=== PATIENT | female | born 1975 | race American Indian/Alaskan Native ===

== ENCOUNTER 2018-12-20 19:34 | Emergency (ER) | payer MEDICARE ==
--- NOTE | 2018-12-20 20:33 | Emergency Department Report ---
Blank Doc - Documentation Documentation: This is a 43-year-old female that presents with vaginal bleeding x2 months. D enies any follow-up with PCP/OBGYN. This initial assessment/diagnostic orders/clinical plan/treatment(s) is/are subject to change based on patient's health status, clinical progression and re-assessment by fellow clinical providers in the ED. Further treatment and workup at subsequent clinical providers discretion. Patient/guardians urged not to elope from the ED as their condition may be serious if not clinically assessed and managed. Initial orders include: 1- Patient sent to [facility] for further evaluation and treatment 2- labs 3- UA
[2018-12-20 20:57] LABS: Basophils % (Auto) 0.6 % (0.0-1.8); Eosinophils # (Auto) 0.1 K/mm3 (0.0-0.4); Eosinophils % (Auto) 1.3 % (0.0-4.3); Hematocrit 33.6 % (30.3-42.9); Hemoglobin 11.3 gm/dl (10.1-14.3); Mean Corpuscular HGB Conc 34 % (30-34); Mean Corpuscular Volume 89 fl (79-97); Monocytes # (Auto) 0.4 K/mm3 (0.0-0.8); Monocytes % (Auto) 9.4 % (0.0-7.3); Platelet Count 327 K/mm3 (140-440); Red Blood Count 3.78 M/mm3 (3.65-5.03); Red Cell Distribution Width 14.1 % (13.2-15.2)
[2018-12-20 21:02] LABS: BUN/Creatinine Ratio 7; Blood Urea Nitrogen 8 mg/dL (7-17); Calcium 9.2 mg/dL (8.4-10.2); Hemolysis Index 5
[2018-12-20 21:14] LABS: HCG Qualitative,Urine Negative (Negative)
[2018-12-20 21:20] LABS: Bacteria,Urine 1+ /HPF (Negative); Bilirubin,Urine NEG (Negative); Blood,Urine LG (Negative); Color,Urine Red (Yellow); Urobilinogen,Urine < 2.0 mg/dL (<2.0)
[2018-12-20 21:21] LABS: RBC,Urine > 182.0 /HPF (0.0-6.0)
--- NOTE | 2018-12-20 23:51 | Ultrasound Report ---
PROCEDURE: US PELVIC COMPLETE TECHNIQUE: Real-time transabdominal sonography in multiple planes of the pelvis was performed. The p elvic structures, especially the ovaries, were not optimally visualized. Transvaginal sonography was then performed to better evaluate the structures and/or abnormalities described below with image docu mentation. HISTORY: vaginal bleed COMPARISONS: None . FINDINGS: UTERUS Size: 9.2 x 5.1 x 5 point cm. Endometrial thickness: 8 mm. Orientation: anteverted. Cervix: Multiple small subcentimeter nabothian cysts. Fibroids/masses: There are 2 small fibroid tumors identified in the posterior uterine myometrium. The largest measures 28 mm.. RIGHT Ovary: 4.4 x 3 x 4.2 cm. Appearance: There is a 3.7 cm dominant simple cyst on the right ovary. LEFT Ovary: Not visualized Pelvic fluid: None. Other: None. IMPRESSION: There are a few fibroids identified in the posterior uterine myometrium, the largest afshin sures 28 mm. There are numerous subcentimeter nabothian cysts is noted at the cervix. There is a 3.7 cm dominant simple cyst on the right ovary. The left ovary is not visualized on this s tudy.. This document is electronically signed by Evelyn Herrera DO., December 20 2018 11:48:57 PM ET
[2018-12-21] MEDS ORDERED: NORCO 5/325 PO ONE (00:57)
--- NOTE | 2018-12-21 01:47 | Emergency Department Report ---
ED Female HPI - General Chief complaint: Vaginal Bleeding Stated complaint: VAGINAL BLEEDING/2 MONTHS Time Seen by Provider: 12/20/18 20:32 Source: patient Mode of arrival: Ambulatory Limitations: No Limitations - History of Present Illness Initial comments: 43-year-old [place] female to emergency department complaining of a 2 month history of vaginal bleeding with cramping off and on. She states today she her bleeding has been at a rate of about 1 pad per hour. her bleeding episodes have been sporadic in intensity. She reports no chest, palpitations, nausea, vomiting, fever, chills, sweats, coryza, presyncope, visual changes. No vaginal discharge or sweats. MD Complaint: vaginal discharge, dysuria -: Gradual Location: suprapubic Radiation: non-radiating Severity: mild Quality: dull Consistency: constant Improves with: none Worsens with: none Are you Now?: No Associated Symptoms: vaginal bleeding (foot 2 months). denies: vaginal discharge, nausea/vomiting, loss of appetite, dysuria, hematuria, shortness of breath, syncope, weakness - Related Data Home Medications Medication Instructions Recorded Confirmed Last Taken Imuran 50 mg PO QDAY 07/03/14 02/17/15 3 Days Ago ~02/14/15 cloNIDine [Catapres] 0.2 mg PO BID 07/03/14 02/17/15 02/17/15 06:00 predniSONE [Prednisone] 10 mg PO QDAY 07/03/14 02/17/15 1 Week Ago ~02/10/15 Amitriptyline [Elavil] 25 mg PO BID PRN 12/16/14 02/17/15 3 Days Ago ~02/14/15 Losartan [Cozaar] 25 mg PO QDAY 12/16/14 02/17/15 3 Days Ago ~02/14/15 Metaxalone [Skelaxin] 800 mg PO TID 12/16/14 02/17/15 3 Days Ago ~02/14/15 NIFEdipine [NIFEdipine XL] 30 mg PO QDAY 12/16/14 02/17/15 1 Week Ago ~02/10/15 Previous Rx's Medication Instructions Recorded Last Taken Type oxyCODONE /ACETAMINOPHEN [Percocet 1 tab PO Q6HR PRN #10 tablet 07/14/14 02/15/15 Rx 5/325 mg] Acetaminophen/Codeine [Tylenol #3] 1 tab PO Q6H PRN #30 tab 06/21/16 Unknown Rx Ibuprofen [Motrin] 800 mg PO Q8HR PRN #20 tablet 06/21/16 Unknown Rx Nitrofurantoin Macrocrystal 100 mg PO BID #14 capsule 12/21/18 Unknown Rx [Macrodantin] medroxyPROGESTERone ACETATE 10 mg PO DAILY #5 tablet 12/21/18 Unknown Rx [Provera] Allergies Allergy/AdvReac Type Severity Reaction Status Date / Time Penicillins Allergy Shortness Verified 01/24/14 14:29 of Breath tramadol HCl [From Ultram] Allergy Rash Verified 01/24/14 14:29 ED Review of Systems ROS: Stated complaint: VAGINAL BLEEDING/2 MONTHS Other details as noted in HPI Constitutional: denies: chills, fever Eyes: denies: eye pain, eye discharge, vision change ENT: denies: ear pain, throat pain Respiratory: denies: cough, shortness of breath, wheezing Cardiovascular: denies: chest pain, palpitations Endocrine: no symptoms reported Gastrointestinal: denies: abdominal pain, nausea, diarrhea Genitourinary: denies: urgency, dysuria, discharge Musculoskeletal: denies: back pain, joint swelling, arthralgia Skin: denies: rash, lesions Neurological: denies: headache, weakness, paresthesias Psychiatric: denies: anxiety, depression Hematological/Lymphatic: denies: easy bleeding, easy bruising ED Past Medical Hx - Past Medical History Previous Medical History?: Yes Hx Hypertension: Yes (FOR 20 YRS) Hx Heart Attack/AMI: No Hx Congestive Heart Failure: No Hx Diabetes: No Hx Deep Vein Thrombosis: No Hx Pulmonary Embolism: No Hx GERD: Yes Hx Liver Disease: No Hx Renal Disease: Yes (CKD) Hx Sickle Cell Disease: Yes (TRAIT) Hx Arthritis: Yes Hx Headaches / Migraines: No Hx Seizures: No Hx Kidney Stones: No Hx Asthma: No Hx COPD: No Hx Tuberculosis: No Hx Dementia: No Hx HIV: No Additional medical history: Lupus, "kidney issues". Anemia. History of hypoglycemia. Review of old chart shows patient has history of lupus nephrotic syndrome or nausea as hypertension irritable bowel syndrome and recent urinary tract infection with acute renal failure. - Surgical History Past Surgical History?: Yes Hx Coronary Stent: No Hx Open Heart Surgery: No Hx Pacemaker: No Hx Internal Defibrillator: No Hx Cholecystectomy: No Hx Appendectomy: No Hx Breast Surgery: No Additional Surgical History: D/C, Tubaligation - Social History Smoking Status: Never Smoker Substance Use Type: None - Medications Home Medications: Home Medications Medication Instructions Recorded Confirmed Last Taken Type Imuran 50 mg PO QDAY 07/03/14 02/17/15 3 Days Ago History ~02/14/15 cloNIDine [Catapres] 0.2 mg PO BID 07/03/14 02/17/15 02/17/15 06:00 History predniSONE [Prednisone] 10 mg PO QDAY 07/03/14 02/17/15 1 Week Ago History ~02/10/15 oxyCODONE /ACETAMINOPHEN [Percocet 1 tab PO Q6HR PRN #10 tablet 07/14/14 02/17/15 02/15/15 Rx 5/325 mg] Amitriptyline [Elavil] 25 mg PO BID PRN 12/16/14 02/17/15 3 Days Ago History ~02/14/15 Losartan [Cozaar] 25 mg PO QDAY 12/16/14 02/17/15 3 Days Ago History ~02/14/15 Metaxalone [Skelaxin] 800 mg PO TID 12/16/14 02/17/15 3 Days Ago History ~02/14/15 NIFEdipine [NIFEdipine XL] 30 mg PO QDAY 12/16/14 02/17/15 1 Week Ago History ~02/10/15 Acetaminophen/Codeine [Tylenol #3] 1 tab PO Q6H PRN #30 tab 06/21/16 Unknown Rx Ibuprofen [Motrin] 800 mg PO Q8HR PRN #20 tablet 06/21/16 Unknown Rx Nitrofurantoin Macrocrystal 100 mg PO BID #14 capsule 12/21/18 Unknown Rx [Macrodantin] medroxyPROGESTERone ACETATE 10 mg PO DAILY #5 tablet 12/21/18 Unknown Rx [Provera] ED Physical Exam - General Limitations: No Limitations General appearance: alert, in no apparent distress - Head Head exam: Present: atraumatic, normocephalic - Eye Eye exam: Present: normal appearance - ENT ENT exam: Present: mucous membranes moist - Neck Neck exam: Present: normal inspection - Respiratory Respiratory exam: Present: normal lung sounds bilaterally. Absent: respiratory distress - Cardiovascular Cardiovascular Exam: Present: regular rate, normal rhythm. Absent: systolic murmur, diastolic murmur, rubs, gallop - GI/Abdominal GI/Abdominal exam: Present: soft, normal bowel sounds - Extremities Exam Extremities exam: Present: normal inspection - Back Exam Back exam: Present: normal inspection - Neurological Exam Neurological exam: Present: alert, oriented X3 - Psychiatric Psychiatric exam: Present: normal affect, normal mood - Skin Skin exam: Present: warm, dry, intact, normal color. Absent: rash ED Course Vital Signs 12/20/18 12/21/18 20:32 01:00 Temperature 98.3 F Pulse Rate 90 Respiratory 14 16 Rate Blood Pressure 157/109 O2 Sat by Pulse 100 Oximetry ED Medical Decision Making - Lab Data Result diagrams: 12/20/18 20:39 12/20/18 20:39 - Radiology Data Radiology results: report reviewed [facility] [address] [place] [address] Ultrasound Report Signed Patient: SALVATORE LINTON MR#: [id number] : 1975 Acct:[id number] Age/Sex: 43 / F ADM Date: 12/20/18 Loc: ED Attending Dr: Ordering Physician: JOSE ALEJANDRO FISHER MD Date of Service: 12/20/18 Procedure(s): US pelvic complete Accession Number(s): [id number] cc: ED MD NATALIA PROCEDURE: US PELVIC COMPLETE TECHNIQUE: Real-time transabdominal sonography in multiple planes of the pelvis was performed. The pelvic structures, especially the ovaries, were not optimally visualized. Transvaginal sonography was then performed to better evaluate the structures and/or abnormalities d escribed below with image documentation. HISTORY: vaginal bleed COMPARISONS: None . FINDINGS: UTERUS Size: 9.2 x 5.1 x 5 point cm. Endometrial thickness: 8 mm. Orientation: anteverted. Cervix: Multiple small subcentimeter nabothian cysts. Fibroids/masses: There are 2 small fibroid tumors identified in the posterior uterine myometrium. The largest measures 28 mm.. RIGHT Ovary: 4.4 x 3 x 4.2 cm. Appearance: There is a 3.7 cm dominant simple cyst on the right ovary. LEFT Ovary: Not visualized Pelvic fluid: None. Other: None. IMPRESSION: There are a few fibroids identified in the posterior uterine myometrium, the largest measures 28 mm. There are numerous subcentimeter nabothian cysts is noted at the cervix. There is a 3.7 cm dominant simple cyst on the right ovary. The left ovary is not visualized on this study.. 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 Plan is to give her some Provera to help control the bleeding. Also, urinary tract infection biotics. Critical care attestation.: If time is entered above; I have spent that time in minutes in the direct care of this critically ill patient, excluding procedure time. ED Disposition Clinical Impression: Leiomyoma of uterus, Ovarian cyst Disposition: DC-01 TO HOME OR SELFCARE Is pt being admited?: No Does the pt Need Aspirin: No Condition: Stable Instructions: Ovarian Cyst (ED), Dysfunctional Uterine Bleeding (ED), Uterine Fibroids (ED) Referrals: BETO GARCIA MD [Primary Care Provider] - 3-5 Days (Keep department with your OB/ FLIGHT MANAGER scheduled for January 02.)
[2018-12-21] MEDS ORDERED: TORADOL IM ONE (02:15)
[2018-12-21] MEDS ORDERED: TORADOL ONE (02:17)
[2018-12-21 02:29] VITALS: BP 136/91
== END 2018-12-21 02:29 | disposition home or self-care (01) ==
LOC: ED 19:34
DX: D25.9 Leiomyoma of uterus, unspecified (principal); N83.201 Unspecified ovarian cyst, right side; I12.9 Hypertensive chronic kidney disease with stage 1 through stage 4 chronic kidney disease, or unspecified chronic kidney disease; N18.9 Chronic kidney disease, unspecified; K21.9 Gastro-esophageal reflux disease without esophagitis; M19.90 Unspecified osteoarthritis, unspecified site; Z98.51 Tubal ligation status; Z88.0 Allergy status to penicillin; Z88.8 Allergy status to other drugs, medicaments and biological substances
CPT/HCPCS: 36415; 76830; 76856; 80048; 81001; 81025; 85025; 96372; 99284; J1885